=== PATIENT | female | born 1955 | race Caucasian/White ===

== ENCOUNTER 2018-03-20 12:41 | Emergency (ER) | payer BC ==
[2018-03-20 12:51] VITALS: TEMP 98.8; BMI 66.7
[2018-03-20] MEDS ORDERED: ONDANSETRON 4 MG/2 ML VIAL IVPB ONE (13:23)
[2018-03-20] MEDS ORDERED: SODIUM CHLORIDE 1,000 ML IV STA (13:23)
--- NOTE | 2018-03-20 13:29 | PDOC ---
History of Present Illness - General Chief Complaint: Nausea/Vomiting Stated Complaint: VOMITING Time Seen by Provider: 03/20/18 13:08 History Source: Patient - History of Present Illness Initial Comments: 03/20/18 13:24 Pt is a 62yo F with PMH of HTN, fatty liver, HLD presenting to ED because "I was at the [facility] and when I got home I had this bad pain and I threw up and I feel like I have to go to the bathroom but nothing comes out". Pt said around 2:30am she had an episode of NBNB emesis, took pepto-bismol and then had 2 more episodes of emesis at 10am. She has been able to keep liquids down, but has not tried any solids. Pt sas the pain is in the LLQ, feels like "gas pain". Rates it 5-6/10, but was worse earlier. Does not radiate. Vomiting helped reduce the pain. She has not had a bowel movement since yesterday and has not passed gas. She admits to some urinary urgency, but no dysuria. She denies fever, chills, chest pain, SOB, dizziness, numbness, tingling, diarrhea. PMH: see hpi PSH: liver biopsy, tonsillectomy Meds: see med rec Allergies: amox Social: denies Past History - Past Medical History Allergies/Adverse Reactions: Allergies Allergy/AdvReac Type Severity Reaction Status Date / Time amoxicillin [Amoxicillin] Allergy Verified 03/20/18 12:47 Home Medications: Ambulatory Orders Amlodipine Besylate [Norvasc -] 5 mg PO DAILY 06/25/12 Aspirin Coated [Ecotrin -] 81 mg PO DAILY 06/25/12 Cholecalciferol (Vitamin D3) [Vitamin D3] 1,000 unit PO DAILY 06/25/12 Fish Oil/Fat No.8/Hrb Comb.137 [Alburtis 3-6-9 1,200 mg Softgel] 1 tab PO DAILY 25/07 Rosuvastatin Calcium [Crestor] 10 mg PO HS 06/25/12 Olmesartan/Hydrochlorothiazide [Benicar Hct 40-12.5 mg Tablet] 1 each PO DAILY 11/26/12 Calcium Carbonate/Vitamin D3 [Calcium + Vitamin D Tablet] 1,200 mg PO DAILY 06/09 Melatonin 5 mg PO HS 09/06/13 Vitamin E 800 unit PO DAILY 09/06/13 Ibuprofen 800 mg PO BID #6 tablet 03/20/18 Anemia: No Asthma: No Cancer: No Cardiac Disorders: No CVA: No COPD: No CHF: No Dementia: No Diabetes: No GI Disorders: No Disorders: No HTN: Yes Hypercholesterolemia: Yes Liver Disease: No Seizures: No Thyroid Disease: No Other medical history: fatty liver - Immunization History Td Vaccination: Yes Immunization Up to Date: Yes - Suicide/Smoking/Psychosocial Hx Smoking Status: No Smoking History: Never smoked Years of Tobacco Use: 0 Number of Cigarettes Smoked Daily: 0 Cigars Per Day: 0 Hx Alcohol Use: No Drug/Substance Use Hx: Yes Substance Use Type: None Hx Substance Use Treatment: No Review of Systems - Review of Systems Constitutional: Yes: Weakness. No: Chills, Fever HEENTM: No: Recent change in vision, Double Vision, Throat Pain Respiratory: No: Cough, Shortness of Breath Cardiac (ROS): No: Chest Pain, Lightheadedness, Palpitations ABD/GI: Yes: Nausea, Vomiting, Abdominal cramping (LLQ). No: Abdominal Distended, Blood Streaked Bowels, Constipated, Diarrhea : Yes: Urgency. No: Burning, Dysuria Musculoskeletal: No: Back Pain, Muscle Pain Neurological: No: Headache, Numbness, Paresthesia, Weakness *Physical Exam - Vital Signs Last Vital Signs Temp Pulse Resp BP Pulse Ox 98.8 F 99 H 16 147/82 98 03/20/18 12:47 03/20/18 12:47 03/20/18 12:47 03/20/18 12:47 03/20/18 12:47 - Physical Exam General Appearance: Yes: Nourished, Appropriately Dressed. No: Apparent Distress HEENT: positive: EOMI, GERSON. negative: Pale Conjunctivae, Scleral Icterus (R), Scleral Icterus (L), Pharyngeal Erythema Neck: positive: Trachea midline, Supple. negative: Lymphadenopathy (R), Lymphadenopathy (L) Respiratory/Chest: positive: Lungs Clear, Normal Breath Sounds. negative: Crackles, Rales, Rhonchi, Wheezing Cardiovascular: positive: Regular Rhythm, Regular Rate, S1, S2, Murmur. negative: Edema, JVD Vascular Pulses: Dorsalis-Pedis (R): 2+, Doralis-Pedis (L): 2+ Gastrointestinal/Abdominal: positive: Normal Bowel Sounds, Soft, Tenderness ( LLQ tenderness). negative: Protuberent, Distended, Guarding, Rebound Musculoskeletal: negative: CVA Tenderness Extremity: positive: Normal Capillary Refill Integumentary: positive: Normal Color, Dry, Warm Neurologic: positive: general i farmworker II-XII NML intact, Fully Oriented, Alert, Normal Mood/ Affect, Normal Response, Motor Strength 11/28 ED Treatment Course - LABORATORY CBC & Chemistry Diagram: 03/20/18 14:05 03/20/18 14:05 Medical Decision Making - Medical Decision Making 03/20/18 13:29 Pt is a 62yo F with PMH of HTN, fatty liver, HLD presenting to ED because "I was at the [facility] and when I got home I had this bad pain and I threw up and I feel like I have to go to the bathroom but nothing comes out". LLQ pain DDx: diverticulitis, colitis, viral GE, AAA, stone CBC, CMP, lipase ordered. Will do CT abdomen because of LLQ tenderness. Pt given IV tylenol, pepcid, zofran for symptom management. 03/20/18 16:28 CT showed 5mm stone either obstructing at UVJ or recently passed. Awaiting UA. Gave pt Toradol for pain. 03/20/18 16:44 Pt reported resolution of symptoms. Pt hemodynamically stable. Pt agrees to plan to dc home. Will follow up with urology *DC/Admit/Observation/Transfer Diagnosis at time of Disposition: Left ureteral stone - Discharge Dispostion Disposition: HOME Condition at time of disposition: Improved Decision to Admit order: No - Prescriptions Prescriptions: Ibuprofen 800 mg PO BID #6 tablet - Referrals Referrals: Lidia Knapp MD [Primary Care Provider] - - Patient Instructions Printed Discharge Instructions: DI for Kidney Stones Additional Instructions: You were seen here today because you were having abdominal pain and vomiting. We did lab tests and a CT scan. The CT scan showed a 5mm stone in your left ureter that may have passed into your bladder. Your urine test did not show an infection Please follow up with Urology. You can call to make an appointment. Please stay hydrated! I gave you ibuprofen 800mg that you can take for pain. Please come back to the ED if: the pain gets worse, you are unable to produce urine, if you develop fever, if you notice change in your urine or if any new concerning symptom develops. Thank you - Post Discharge Activity Forms/Work/School Notes: Back to Work
[2018-03-20] MEDS ORDERED: ONDANSETRON 4 MG/2 ML VIAL ONE (13:43)
[2018-03-20] MEDS ORDERED: FAMOTIDINE 20 MG/50 ML IVPB 20 MG/50 ML MG IVPB ONE ×2 (13:53→14:08)
[2018-03-20] MEDS ORDERED: ACETAMINOPHEN 1000 MG/100 ML VIAL (NON FORMULARY) IVPB ONE (13:53)
[2018-03-20] MEDS ORDERED: ACETAMINOPHEN INJECTION 100 ML IVPB ONE (14:08)
[2018-03-20 14:10] LABS: BASO % 0.3 % (0-2.0); HEMATOCRIT 38.5 % (32.4-45.2); HEMOGLOBIN 13.2 GM/dL (10.7-15.3); LYMPH % 10.3 % (8-40); MCH 30.3 pg (25.7-33.7); MCHC 34.2 g/dl (32.0-36.0); MEAN CELL VOLUME 88.6 fl (80-96); MEAN PLT VOLUME 9.9 fl (7.5-11.1); MONO % 6.8 % (3.8-10.2); NEUT % 82.6 % (42.8-82.8); PLATELET COUNT 170 K/MM3 (134-434); RBC 4.35 M/mm3 (3.60-5.2); RDW 13.7 % (11.6-15.6); WHITE BLOOD COUNT 15.8 K/mm3 (4.0-10.0)
[2018-03-20 14:36] LABS: ALBUMIN 3.9 g/dl (3.4-5.0); ALK PHOS 76 U/L (45-117); ANION GAP 10 MMOL/L (8-16); BILIRUBIN,TOTAL 0.5 mg/dL (0.2-1.0); BLOOD UREA NITROGEN 18 mg/dL (7-18); CALCIUM 9.2 mg/dL (8.5-10.1); CHLORIDE 98 mmol/L (98-107); CO2 28 mmol/L (21-32); CREATININE 1.2 mg/dL (0.55-1.02); GLUCOSE,RANDOM 143 mg/dL (74-106); LIPASE 80 U/L (73-393); SGPT/ALT 50 U/L (12-78); SODIUM 136 mmol/L (136-145); TOT PROT 9.3 g/dl (6.4-8.2)
[2018-03-20 14:38] LABS: POTASSIUM 5.1 mmol/L (3.5-5.1); SGOT/AST 74 U/L (15-37)
[2018-03-20] MEDS ORDERED: morphine CARPU-JECT 2 MG/1 ML DISP.SYRIN IVPUSH ONE (16:01)
[2018-03-20] MEDS ORDERED: KETOROLAC TROMETHAMINE 30 MG/1 ML VIAL IVPUSH ONE (16:02)
[2018-03-20] MEDS ORDERED: KETOROLAC TROMETHAMINE 30 MG/1 ML VIAL ONE (16:09)
--- NOTE | 2018-03-20 16:17 | PDOC ---
Attending Attestation - HPI HPI: 03/20/18 16:20 62 year old female with a past medical history of fatty liver, HTN, and HLD who presents to the emergency department for evaluation of abdominal pain with nausea and vomiting. Pt reports LLQ pain ranked 6/10 in severity. She reports nausea with 4 episodes of vomiting today, described as the deep vegetarian food she ate yesterday. Pt endorses bowel urgency and notes 2 bowel movements described as soft and non watery. The patient denies paresthesia of extremities, chest pain, SOB, dizziness, fever , chills, diarrhea, dysuria, hematuria, and burning upon urination. Allergies: amoxicillin <Sunni Last - Last Filed: 03/20/18 16:20> - Resident Resident Name: Nusrat Ferrell - ED Attending Attestation I have performed the following: I have examined & evaluated the patient, The case was reviewed & discussed with the resident, I agree w/resident's findings & plan, Exceptions are as noted - Physicial Exam PE: 03/20/18 16:15 awake alert lungs clear bilaterally. heart rrr no mrg.abd soft. mild llq ttp. no rebound no guarding. skin warm and dryl. alert oriented x 3. - Medical Decision Making 03/20/18 16:16 differential diagnosis: diverticlitis, GE, food poisoning. uti pyelo. plan ct a/ p r/o diverticulitis. ua labs pain control 03/20/18 18:10 pt with uvj stone on ct. incidentally developed hematuria in ed. now feeling improved. will dc home with followup with urology. <Maine Muniz - Last Filed: 03/20/18 18:10> Attestations - Attestations Documentation prepared by Sunni Last, acting as medical delivery driver for Maine Muniz MD. <Sunni Last - Last Filed: 03/20/18 16:20>
[2018-03-20 16:33] LABS: URINE APPEARANCE CLEAR; URINE BILIRUBIN NEGATIVE (<2.0 mg/dL); URINE COLOR STRAW; URINE GLUCOSE (UA) NEGATIVE (NEGATIVE); URINE KETONE NEGATIVE (NEGATIVE); URINE LEUK ESTERASE NEGATIVE (NEGATIVE); URINE NITRITE NEGATIVE (NEGATIVE); URINE UROBILINOGEN NEGATIVE mg/dL (0.2-1.0)
[2018-03-20 16:37] LABS: URINE PROTEIN 1+ (NEGATIVE)
[2018-03-20 16:46] LABS: EPI CELLS RARE /HPF (FEW)
[2018-03-20 17:56] VITALS: BP 128/71; PULSE 78
== END 2018-03-20 18:20 | disposition home or self-care (01) ==
LOC: JER 12:41
PROC: 3E0337Z Introduction of Electrolytic and Water Balance Substance into Peripheral Vein, Percutaneous Approach (ICD-10-PCS; principal; 2018-03-20)
PROC: 3E033GC Introduction of Other Therapeutic Substance into Peripheral Vein, Percutaneous Approach (ICD-10-PCS; 2018-03-20)
PROC: 3E033NZ Introduction of Analgesics, Hypnotics, Sedatives into Peripheral Vein, Percutaneous Approach (ICD-10-PCS; 2018-03-20)
PROC: 3E0333Z Introduction of Anti-inflammatory into Peripheral Vein, Percutaneous Approach (ICD-10-PCS; 2018-03-20)
PROC: 3E033GC Introduction of Other Therapeutic Substance into Peripheral Vein, Percutaneous Approach (ICD-10-PCS; 2018-03-20)
DX: N20.1 Calculus of ureter (principal); I10 Essential (primary) hypertension; E78.5 Hyperlipidemia, unspecified; K76.0 Fatty (change of) liver, not elsewhere classified
CPT/HCPCS: 36415; 74177-TC; 80053; 81003; 81015; 83690; 85025; 99282-25; J0131; J7030

== ENCOUNTER 2019-05-23 10:48 | Day surgery (SDC) | payer BC ==
[2019-05-23 11:29] LABS: HEMATOCRIT 38.4 % (32.4-45.2); HEMOGLOBIN 12.8 GM/dL (10.7-15.3); MCH 29.8 pg (25.7-33.7); MCHC 33.5 g/dl (32.0-36.0); MEAN PLT VOLUME 8.9 fl (7.5-11.1); PLATELET COUNT 239 K/MM3 (134-434); RBC 4.31 M/mm3 (3.60-5.2); RDW 13.9 % (11.6-15.6); WHITE BLOOD COUNT 9.5 K/mm3 (4.0-10.0)
[2019-05-23 11:42] LABS: INR 1.46 (0.83-1.09); PROTHROMBIN TIME (PATIENT) 17.3 SEC (9.7-13.0)
[2019-05-23 11:45] LABS: ACTIVATED PTT 41.4 SECONDS (25.2-36.5)
[2019-05-23 11:56] LABS: ALBUMIN 3.7 g/dl (3.4-5.0); BILIRUBIN,TOTAL 0.4 mg/dL (0.2-1); BLOOD UREA NITROGEN 10.7 mg/dL (7-18); CALCIUM 9.2 mg/dL (8.5-10.1); CREATININE 0.7 mg/dL (0.55-1.3); POTASSIUM 3.8 mmol/L (3.5-5.1); TOT PROT 8.1 g/dl (6.4-8.2)
[2019-05-23 14:44] VITALS: BP 131/71; PULSE 66; TEMP 98.1; BMI 30.9
--- NOTE | 2019-05-23 15:44 | EKG ---
Test Reason : Blood Pressure : / mmHG Vent. Rate : 065 BPM Atrial Rate : 065 BPM P-R Int : 212 ms QRS Dur : 090 ms QT Int : 444 ms P-R-T Axes : 026 -27 -06 degrees QTc Int : 461 ms SINUS RHYTHM WITH 1ST DEGREE A-V BLOCK OTHERWISE NORMAL ECG WHEN COMPARED WITH ECG OF 06-SEP-2013 11:11, T WAVE VARIATION Confirmed by HILDA MOISE, MARCIN ([id number]) on 05/23/2019 3:43:55 PM Referred By: Marcin Stevens Confirmed By:MARCIN STEVENS MD
== END 2019-05-23 12:30 | disposition home or self-care (01) ==
LOC: JASU-ENDO 10:48
PROVIDERS: ATTEND Internal Medicine Cardiovascular Disease
PROC: 5A2204Z Restoration of Cardiac Rhythm, Single (ICD-10-PCS; principal; 2019-05-23)
DX: I48.91 Unspecified atrial fibrillation (principal); Z53.8 Procedure and treatment not carried out for other reasons
CPT/HCPCS: 36415; 80053; 85027; 85610; 85730; 92960; 93005; 93010

== ENCOUNTER 2020-09-15 11:58 | Emergency (ER) | payer BC | END 2020-09-15 13:33 | disposition home or self-care (01) | LOC: JVIRT 11:58 | DX: U07.1 COVID-19 (principal) | CPT/HCPCS: C9803; G2251-GT; U0003 ==

== ENCOUNTER 2022-11-18 04:05 | Day surgery (SDC) | payer OTHER, BC ==
[2022-11-14 18:08] VITALS: BMI 31.4
[2022-11-18] MEDS ORDERED: BUPIVACAINE HCL/PF 0.25% (2.5MG/ML) 10 ML VIAL ONE (07:26)
[2022-11-18] MEDS ORDERED: BUPIVACAINE HCL/PF 0.5% (5MG/ML) 10 ML VIAL ONE (07:27)
[2022-11-18] MEDS ORDERED: TRIAMCINOLONE ACET 40MG/1ML VIAL ONE (07:27)
[2022-11-18] MEDS ORDERED: LIDOCAINE HCL/PF 1% SDV 5ML VIAL ONE (07:28)
[2022-11-18 07:36] VITALS: PULSE 72
[2022-11-18] MEDS ORDERED: LIDOCAINE 1% P/F 10 MG/ML VIAL INF ONE ×2 (08:58)
[2022-11-18] MEDS ORDERED: IOHEXOL 180 MG/1 ML ML IJ ONE (08:58)
[2022-11-18] MEDS ORDERED: TRIAMCINOLONE ACET 40MG/1ML VIAL IM ONE (08:59)
[2022-11-18] MEDS ORDERED: BUPIVACAINE HCL/PF 2.5 MG/ML - 30 ML VIAL IJ ONE ×2 (08:59)
[2022-11-18 09:39] VITALS: BP 130/50; RESP 18; TEMP 97
[2022-11-18] MEDS ORDERED: ACETAMINOPHEN 500 MG TABLET (FP) PO PRN (14:06)
== END 2022-11-18 09:39 | disposition home or self-care (01) ==
LOC: JASU-SURG 04:05
PROVIDERS: ATTEND Pain Medicine Pain Medicine
PROC: 3E0U3BZ Introduction of Anesthetic Agent into Joints, Percutaneous Approach (ICD-10-PCS; 2022-11-18)
PROC: 3E0U33Z Introduction of Anti-inflammatory into Joints, Percutaneous Approach (ICD-10-PCS; principal; 2022-11-18 08:30)
DX: M16.12 Unilateral primary osteoarthritis, left hip (principal)
CPT/HCPCS: 76000-TC-FY